=== PATIENT | male | born 1975 | race Caucasian/White ===

== ENCOUNTER 2018-01-23 12:37 | Emergency (ER) | payer OTHER | END 2018-01-23 15:49 | disposition home or self-care (01) | LOC: M ED 12:37 | DX: S83.91XA Sprain of unspecified site of right knee, initial encounter (principal); X50.9XXA Other and unspecified overexertion or strenuous movements or postures, initial encounter; Y92.830 Public park as the place of occurrence of the external cause; Y93.66 Activity, soccer; F17.210 Nicotine dependence, cigarettes, uncomplicated | CPT/HCPCS: 73564 ==